=== PATIENT | male | born 1950 | race Caucasian/White ===

== ENCOUNTER → 2020-05-07 08:59 | Outpatient (CLI) | payer MEDICARE, SELFPAY ==
[2020-05-08 07:52] LABS: COVID19 Sendout Not Detected (Not Detect)
== END ==
PROVIDERS: Visit Provider Physician Assistant
DX: Z01.818 Encounter for other preprocedural examination (principal)
CPT/HCPCS: 87635

== ENCOUNTER 2020-05-10 12:58 | Day surgery (SDC) | payer MEDICARE, SELFPAY ==
[2020-05-04 08:09] VITALS: BMI 29.8
[2020-05-10] VITALS (12 sets, daily range): BP systolic 97–149; BP diastolic 37–76; PULSE 58–68; RESP 14–20; TEMP 35.8–36.8; O2SAT 92–97; BMI 29.8
[2020-05-10] MEDS: LACTATED RINGERS 1,000 ML 42 ML IV ×2 (13:38→16:34)
--- NOTE | 2020-05-10 14:26 | PM.PREOP ---
Pre-operative Note COVID-19 COVID-19 status: Negative Result date/Date tested (Pos, Neg/Pending): 05/07/20 Interval Note History & Physical reviewed/Exam performed by Physician: Yes Changes to H&P: No
[2020-05-10] MEDS: CEFAZOLIN 2 GM/100 ML FROZ.PIGGY IV ×2 (15:20→22:49)
--- NOTE | 2020-05-10 15:54 | SUR.OPER ---
Lateral on padded OR bed, head on pillow, gel axillary roll in place, bottom leg bent with gel pad under knee to foot, upper leg straight and supported with pillows. Upper arm supported by pillows and secured over bottom arm to padded arm board. Safety belt at hip, tape over blanket lower legs.
[2020-05-10] MEDS: ROPIVACAINE 0.5% PF 20ML 60 ML, MORPHINE 4 MG, KETOROLAC 30 MG INJ (15:59)
[2020-05-10] MEDS: TRANEXAMIC ACID 1,000 MG VIAL 1000 MG IV ×2 (16:01→16:50)
--- NOTE | 2020-05-10 16:56 | P.OP_ITS ---
Operative Date/Time/Diagnoses Date of procedure: 05/10/20 Time of procedure: 16:56 Pre-op diagnosis: Right hip degenerative joint disease Post-op diagnosis: same Procedure & Clinicians Procedure: Right total hip arthroplasty (CPT code 90416 with minister assistant) Same procedure as scheduled: Yes Indications: Patient is an 69-year-old male with severe right hip DJD. The patient has pain with activities and at rest, limited ambulation and activity tolerance, difficulties with ADLs, and failure of conservative treatment. We have discussed the nature of condition, treatment options, risks and benefits, and patient elects to proceed with total hip arthroplasty and gives informed consent. Surgeon: Jordan Reyes Chain Link Fence Installer: Bernardino Zuniga Anesthesia Type: General and Spinal Operative Notes Closure Type: primary Specimen(s): none sent Prosthetic devices, grafts, tissues, transplants, or devices: Acetabulum: [employer] R3 acetabular component size 60 mm, 25 mm screw x2 Femoral component: [employer] Anthology stem size 6 with standard offset Femoral head: 36 mm + 0 cobalt chrome Estimated Blood Loss (mL): 200 Blood products transfused: none Procedure in detail: After satisfaction induction of anesthetic, and administration of IV antibiotics, the patient was positioned in the lateral decubitus position with all bony prominences well padded and pelvic position secured using a hip content administrator positioning device. Right hip and lower extremity prepped and draped in the usual sterile fashion, 1st dose of intravenous tranexamic acid was administered, then a longitudinal incision was created centered over the greater trochanter and carried sharply through the skin and subcutaneous tissues down to the fascia jorge luis which was divided longitudinally and retracted with a Charnley retractor. External rotators visualize, cut, tagged, and retracted posteriorly, then the capsule was cut in a T-type fashion with the corners tagged and retracted. Hip was dislocated and femoral neck cut made according to preoperative templating. Acetabular retractors then placed, and the acetabular labrum and osteophytes were excised. The acetabulum was then sequentially reamed to 59 mm with an excellent circumferential ream and fit with the trial. The trial component was removed and a permanent size 60 mm [employer]hew R3 acetabular component was selected, positioned, and impacted with satisfactory position but only moderately good fixation achieved. The acetabular component was removed, then the acetabulum re-reamed slightly more medially. Another trial fitting yielded excellent fixation so the permanent size 60 mm R3 component was then inserted and impacted into position with excellent fixation. This was further stabilized with 2 superior and posterior superior 25 mm screws. Permanent liner was then inserted with the elevated lip directed posteriorly. Soft tissue then removed off the lateral femoral neck in the lateral neck was entered using a box osteotome. T-handled reamers placed down the canal followed by sequential broaching to 6 with the final broach left in place for trial reduction which demonstrated excellent leg length, range of motion, and stability characteristics with a 36 mm +0 trial ball. The trial and broach were removed, and a permanent size 6 Ja[employer] Anthology stem was selected and inserted with excellent position and fixation achieved. Another trial reduction yielded the above characteristics so the trial ball was exchanged for a permanent 36 mm +0 cobalt chrome ball. The hip was irrigated and reduced and excellent leg length range of motion and stability characteristics were achieved and maintained. Periarticular tissues were infiltrated with ropivacaine, morphine, and Toradol. The hip was copiously irrigated, and the capsule repaired with #2 Ethibond, and the piriformis was repaired back to the greater trochanter with the same. Fascia jorge luis closed with interrupted #1 Ethibond sutures, and the subcutaneous tissues were closed in 2 layers of 0 Vicryl and 2 0 Vicryl. Skin was closed with rehana and sterile dressings applied. Second dose of tranexamic acid was administered intravenously, and the anesthetic was terminated. Complications: none Post-operative Condition: stable Disposition: PACU Plan for aftercare: Patient will be admitted to the acute care ma, and anticipate discharge on postop day 1 or 2 with follow-up in office in 10-14 days. Outpatient physical therapy will be arranged and patient will continue to observe posterior hip precautions. Patient will continue use of aspirin for DVT prophylaxis.
[2020-05-10] MEDS: ALBUTEROL 2.5 MG/3 ML NEB (ADULT) INH (17:08)
[2020-05-10] MEDS: ACETAMINOPHEN 325 MG TABLET 650 MG PO (19:45)
[2020-05-10] MEDS: OXYCODONE IR 5 MG TABLET PO ×2 (19:45→23:49)
[2020-05-10] MEDS: DOCUSATE 100 MG CAPSULE PO (19:45)
[2020-05-10] MEDS: ASPIRIN EC 81 MG TABLET PO (19:45)
[2020-05-10] MEDS: HYDROCODONE/ACET 5/325 TABLET 1 TAB PO (22:49)
--- NOTE | 2020-05-11 00:57 | PC.NURSE ---
Addendum entered by Judi Owens R.N. 05/11/20 05:33: Patient complaining of 8/10 pain at 0415 this morning and was medicated with Oxycodone. After that was assisted to get out of bed and ambulated to/from bathroom with walker and 1 assist; slow but steady. Was able to urinate 100cc dark harpreet urine. Ice pack was applied to right hip. At 0512 still states the pain is 8/10 so medicated with Vicodin. Original Note: Patient initially seen and assessed at 0005. Is alert and oriented. Breath sounds CTA with RA sat of 97%. HRR but bradycardic with rate in 50's. Denies nausea. BT present but denies flatus. Voided only 50cc on previous shift with bladder scan done at 2230 showing only 79cc in bladder; encouraged to increase po intake as no IVF infusing. Is able to move himself in bed; instructed to call for assist if needing help. Has been up previous shift with walker and 1 assist; denies weakness but states he is hesitant to put full weight on leg. Bulky dressing to right hip is CDI. Stated pain was up to 8/10 after having taken Vicodin earlier so medicated with Oxycodone and is currently sleeping. CMS is intact. Wearing bilateral calf SCD's. Daughter, Heena, rooming in. Fall risk score is moderate and bed alarm is activated.
[2020-05-11] MEDS: OXYCODONE IR 5 MG TABLET PO ×2 (04:16→08:16)
[2020-05-11 04:19] VITALS: BP 147/67; PULSE 64; RESP 16; TEMP 37.4; O2SAT 93
[2020-05-11] MEDS: HYDROCODONE/ACET 5/325 TABLET 1 TAB PO (05:12)
[2020-05-11 05:51] LABS: Hematocrit 37.7 % (41-53); Hemoglobin 12.9 g/dL (13.5-17.5)
[2020-05-11] MEDS: CEFAZOLIN 2 GM/100 ML FROZ.PIGGY IV (06:32)
[2020-05-11] MEDS: SODIUM CHLORIDE 0.9% FLUSH 10 ML IV ×2 (06:33→08:17)
[2020-05-11 07:00] VITALS: BP 152/68; PULSE 74; RESP 18; TEMP 37.1; O2SAT 93
[2020-05-11] MEDS: ASPIRIN EC 81 MG TABLET PO (08:16)
[2020-05-11] MEDS: ACETAMINOPHEN 325 MG TABLET 650 MG PO (08:17)
--- NOTE | 2020-05-11 09:38 | PT.IIE ---
Current Diagnoses Unilateral primary osteoarthritis, right hip (05/10/20) Surgery Performed Operation Date: 05/10/20 14:45 Actual Procedures p Total Hip Arthroplasty(Right) - Jordan Reyes MD Surgical History (Last Updated 05/04/20 @ 09:04 by Rivka Kuhn RN) Hx of left inguinal hernia repair (Acute 03/2020) Hx of tonsillectomy (Acute) [place] teeth removed (Acute) Medical History (Last Updated 05/17/19 @ 14:21 by Rivka Kuhn RN) ABPA (allergic bronchopulmonary aspergillosis) (Acute ~2017) Arthritis (Acute) Bronchiectasis (Acute) COPD (chronic obstructive pulmonary disease) (Acute) Easy bruisability (Acute) Edema (Acute) Former smoker (Acute) Osteoarthritis (Acute) Pulmonary nodule (Acute) Severe persistent asthma with acute exacerbation (Acute) Physical Therapy Inpatient Evaluation/Re-Eval M1 PT/OT-IP Prior Functional Status Start: 05/11/20 10:13 Freq: NEEDED Status: Active Protocol: Document 05/11/20 09:14 DCW (Rec: 05/11/20 10:24 DCW [id number]) Medical Review Prior Functional Status Medical History Reviewed Yes Diet/Fluid Consistency Regular Social History Household Members none Living Arrangements House Number of Floors (Floors) Two Floors Number of Stairs To Enter/Railing? None Home Environment High Toilet,Walk in Shower Home Equipment Front Wheel Walker,Straight Cane,Shower Seat with Backrest Additional Social History Comment Pt has five children, at least one will be staying with him for 24-7 for the next two weeks M2 PT-IP Current Condition Start: 05/11/20 10:13 Freq: NEEDED Status: Active Protocol: Document 05/11/20 09:14 DCW (Rec: 05/11/20 10:24 DCW [id number]) Physical Therapy Current Condition Current Condition Evaluation Date 05/11/20 Treatment Diagnosis R CADE Onset Date 05/10/20 Precautions Posterior Hip Precautions No Hip Flexion > 90 degrees,No Hip Internal Rotation,No Hip Adduction Weight Bearing Status Weight Bearing Status Weight Bear as Tolerated M3 PT-IP Subjective Start: 05/11/20 10:13 Freq: NEEDED Status: Active Protocol: Document 05/11/20 09:14 DCW (Rec: 05/11/20 10:24 DCW [id number]) Subjective Physical Therapy Visit Type Type Initial Evaluation Visit Start Time 09:14 Visit Stop Time 09:38 Total Visit Minutes 24 Notes Pt is a 69 year old male POD # 1 s/p R CADE. Pt has a wonderful support system at home, no stairs to enter, and although he lives in a split- level home, has his house set up so that he is able to stay completely on the first floor. Pt PLOF was completely independent. Number of NITRATING ACID MIXER Visits 0 Physical Therapy Visit Comments Patient Comments I'm ready to get out of here. Therapy Pain Assessment Pain When Pain Assessed At Rest Pain Present Pain Present Pain Reported Location right hip Intensity 5 Scale Used Numeric (0 - 10) Description Aching,Sharp,With Movement M4 PT-IP Mobility and Gait Start: 05/11/20 10:13 Freq: NEEDED Status: Active Protocol: Document 05/11/20 09:14 DCW (Rec: 05/11/20 10:24 DCW [id number]) PT-Transfer Assessment Sit to and From Stand Sit to and from Stand Standby Assistance Equipment Transfer Assistive Device 4 Wheeled Walker Transfer Ability Level of Assist Independent Gait Assessment Gait Gait Assistance Required: Standby Assistance Distance (Feet) 250 Able to Maintain Weight Bearing Status Yes During Gait Assistive Devices Assistive Device Gait Belt,Front Wheeled Walker Gait Deviations General Gait Pattern Antalgic,Decreased Stride Length,Decreased Feet Clearance Factors Limiting Gait Function Factors Limiting Gait Function Decreased Activity Tolerance, Decreased Strength,Pain PT-Balance Assessment Sitting Balance and Reactions Static Sitting Balance Ability Normal Dynamic Sitting Balance Ability Normal Standing Balance and Reactions Static Standing Balance Ability Normal Dynamic Standing Balance Ability Good M5 PT-IP Objective Assessments Start: 05/11/20 10:13 Freq: NEEDED Status: Active Protocol: Document 05/11/20 09:14 DCW (Rec: 05/11/20 10:24 DCW [id number]) Orientation Orientation/Cognition Level of Alertness Alert Orientation Name,Birthday,Month,Date,Year, Place,Situation Language Function Ability No Deficits Noted Safety Awareness Understands Safety Issues Memory Description No Deficits Noted Comments Pt able to repeat hip precautions Gross Range of Motion Upper Extremity ROM Assessment Within Functional Limits Lower Extremity ROM Assessment Right Impaired Strength Upper Extremity Strength Assessment Within Functional Limits Lower Extremity Strength Assessment Right Impaired Hip 4-/5 Knee 4-/5 Ankle 4+/5 Coordination Assessment Gross Coordination Gross Coordination WNL M6 PT-IP Treatment Start: 05/11/20 10:13 Freq: NEEDED Status: Active Protocol: Document 05/11/20 09:14 DCW (Rec: 05/11/20 10:24 DCW [id number]) Physical Therapy Treatment Exercises Exercises Ankle Pumps,Gluteal Sets,Quad Sets,Heel Slides,Supine Hip Abduction Education Education Provided Precautions,Post-Op Packet, Safety M7 PT-IP Assessment and Plan Start: 05/11/20 10:13 Freq: NEEDED Status: Active Protocol: Document 05/11/20 09:14 DCW (Rec: 05/11/20 10:24 DCW [id number]) PT Summary Assessment and Plan Potential Rehabilitation Potential Excellent Status of Condition at Evaluation Stable Summary Impairments Pain,ROM,Strength,Gait, Activity Tolerance Assessment Summary Pt doing well POD #1 following R CADE. Pt able to sit<->stand and ambulate using FWW SBA, no concerns for safety or stability. Pt is able to have assistance at home for at least the next two weeks from his children. Pt has no required stairs in his home. Pt understands necessity of following hip precautions, good safety awareness. Pt will be discharging from in- patient this morning, will likely benefit from out- patient therapy. Pt agreeable to perform post-op exercises reviewed in today's therapy session. Frequency of Treatment Frequency Of Treatment Discharge Recommendations To Nursing Amount of Assist Needed Standby Assistance Discharge Recommendations PT Discharge Recommendations Home with Assistance, Outpatient PT Transportation Needs at Discharge Private Vehicle
--- NOTE | 2020-05-11 11:56 | PC.NURSE ---
Patient eager for discharge. Patient was cleared by PT for discharge to home with his daughter. Bulky dressing to right hip remains in place and CDI. Discharge instructions were reviewed with patient and his daughter by the charger operator helper, and she discontinued his IV as well. Patient states he has no further questions or concerns at this time. Patient was escorted out via wheelchair with all belongings to be discharged to home by DOBIE MAN. Patient has follow up appointment scheduled.
--- NOTE | 2020-05-11 12:38 | CM.DPNOTE ---
Brief D/C Assessment: EMR reviewed: Patient is a 69 yr old male who is a RTH pt of Dr. Reyes's CM/Rn met with patient at the bedside and explained role. Patient was alert and oriented x3 at time of CM visit. Patient was readying for D/C so assessment meeting was brief. Patient lives in [place] alone but 5 local children to offer support. Jennifer meadows BS is HPOA and says his only issue is sittng still, We both encouraged patient to nbe active but smart about it. Patient stated he keeps moving becausee of grief for who in January. Patient currently is Independent at home with toileting grooming eating and with driving. I: MCR and AARP Plan: D/C plan is home with OP PT
== END 2020-05-11 10:30 | disposition home or self-care (01) ==
LOC: OR 13:05 → AC 13:06
PROVIDERS: PCP Family Medicine Sports Medicine; Referring Provider Orthopaedic Surgery; Visit Provider Orthopaedic Surgery
PROC: 0SR90JZ Replacement of Right Hip Joint with Synthetic Substitute, Open Approach (ICD-10-PCS; CPT 27130; principal; 2020-05-10 14:45)
DX: M16.11 Unilateral primary osteoarthritis, right hip (principal); J44.9 Chronic obstructive pulmonary disease, unspecified
CPT/HCPCS: 27130; 36415; 85014; 85018; 97116; 97161; C1776; J0690; J1885; J2250; J2270; J2704; J2795; J3010; J7613